=== PATIENT | male | born 1975 | race Caucasian/White ===

== ENCOUNTER 2017-05-15 18:53 | Emergency (ER) | payer SELFPAY, OTHER | END 2017-05-15 21:30 | disposition left against medical advice (07) | LOC: FTE 21:30 | DX: Z53.21 Procedure and treatment not carried out due to patient leaving prior to being seen by health care provider (principal) ==

== ENCOUNTER 2018-05-19 21:06 | Emergency (ER) | payer OTHER ==
[2018-05-19] MEDS: DIPHTH/TET/ACEL PERTUSS (ADULT) 0.5 ML VIAL IM* (23:41)
[2018-05-19] MEDS: IBUPROFEN 800 MG TAB PO (23:42)
[2018-05-19] MEDS: CEFAZOLIN 1 GM INJ IM (23:58)
== END 2018-05-20 01:13 | disposition home or self-care (01) ==
LOC: FTE 05-20 01:13
DX: S62.633A Displaced fracture of distal phalanx of left middle finger, initial encounter for closed fracture (principal); F17.210 Nicotine dependence, cigarettes, uncomplicated; R40.2412 Glasgow coma scale score 13-15, at arrival to emergency department; W54.0XXA Bitten by dog, initial encounter; Y92.009 Unspecified place in unspecified non-institutional (private) residence as the place of occurrence of the external cause; Z23 Encounter for immunization
CPT/HCPCS: 29130; 73140; 90471; 90715; 96372; 99284-25